=== PATIENT | male | born 1955 ===

== ENCOUNTER 2017-08-16 10:27 | Outpatient (CLI) | payer OTHER | END 2017-08-16 14:00 | disposition home or self-care (01) | LOC: RAD 501 10:27 | DX: M25.571 Pain in right ankle and joints of right foot (principal) ==

== ENCOUNTER 2017-09-06 12:48 | Outpatient (CLI) | payer OTHER | END 2017-09-06 12:55 | disposition home or self-care (01) | LOC: RAD 501 12:48 | DX: S92.511A Displaced fracture of proximal phalanx of right lesser toe(s), initial encounter for closed fracture (principal) ==